=== PATIENT | male | born 1990 | race Native Hawaiian/Other Pacific Islander ===

== ENCOUNTER 2016-12-02 15:47 | Emergency (ER) | payer SELFPAY ==
[2016-12-02 15:48] VITALS: BP 150/88; PULSE 65; RESP 14; TEMP 98.6; O2SAT 99
--- NOTE | 2016-12-02 16:25 | PD ---
Physical Exam Time Seen by Provider: 16:23 Narrative 26-year-old male complaining of left upper back pain since yesterday. Denies new or recent injury. Worse with deep inspiration and movement. Denies cough, fevers, vomiting. Patient seen in triage. Vital signs reviewed. Patient awaiting bed placement. Data Data Last Documented VS Vital Signs Date Time Temp Pulse Resp B/P (MAP) Pulse Ox O2 Delivery O2 Flow Rate FiO2 12/02/16 15:48 98.6 65 14 150/88 (108) 99 MDM Supervised Visit with WALT: Nkechi Centeno Dec 02, 2016 16:25
--- NOTE | 2016-12-02 19:19 | PD ---
HPI Chief Complaint: Pain: Acute or Chronic Time Seen by Provider: 19:07 Travel History International Travel<30 days: No Contact w/Intl Traveler<30days: No Traveled to known affect area: No History of Present Illness HPI 26-year-old male presents emergency Department with complains of back pain. He states the pain is present now for the past 1-2 days. Pain is worse with taking a deep breath. Moderate in intensity. Some relief with limiting movements. He has not been sick recently. He states that he has recently started a new exercise routine. He did perform back exercises such as rows and pull downs. Patient denies any nausea vomiting. No abdominal pain. No urinary symptoms. PFSH Past Medical History Medical History: Denies Significant Hx Tetanus Vaccination: < 5 Years Past Surgical History Surgical History: No Previous Surgery Social History Alcohol Use: No Tobacco Use: No Substance Use: No Allergies-Medications (Allergen,Severity, Reaction): Coded Allergies: No Known Allergies (Unverified , 12/02/16) Reported Meds & Prescriptions Reported Meds & Active Scripts Active Flexeril (Cyclobenzaprine HCl) 10 Mg Tab 10 Mg PO TID Diclofenac Sodium DR (Diclofenac Sodium) 75 Mg Tabdr 75 Mg PO BID Review of Systems Except as stated in HPI: all other systems reviewed are Neg Physical Exam Narrative GENERAL: Well-developed, well-nourished in no acute distress. Nontoxic appearing. HEAD: Normocephalic, atraumatic. EYES: Pupils equal round and reactive. Extraocular motions intact. No scleral icterus. No injection or drainage. ENT: TMs clear without erythema. The external auditory canals clear. Nose: clear . Posterior pharynx is pink and moist. No tonsillar edema or exudate. Uvula midline. Airway patent. NECK: Trachea midline.Supple, nontender, moves head freely. No central bony tenderness or spasm. CARDIOVASCULAR: Regular rate and rhythm without murmurs, gallops, or rubs. RESPIRATORY: Clear to auscultation. Breath sounds equal bilaterally. No wheezes , rales, or rhonchi. GASTROINTESTINAL: Abdomen soft, non-tender, nondistended. No hepato-splenomegaly , or palpable masses. No guarding. EXTREMITIES: No clubbing, cyanosis, or edema. No joint tenderness, effusion, or edema noted. BACK: Patient has reproducible parascapular tenderness in the upper thoracic region. No spasm. Moves freely. No central bony tenderness. No pain in the lumbar spine. Data Data Last Documented VS Vital Signs Date Time Temp Pulse Resp B/P (MAP) Pulse Ox O2 Delivery O2 Flow Rate FiO2 12/02/16 15:48 98.6 65 14 150/88 (108) 99 Orders Orders Chest, Single Ap (12/02/16 19:11) Ed Discharge Order (12/02/16 19:46) MDM Medical Decision Making Medical Screen Exam Complete: Yes Emergency Medical Condition: Yes Medical Record Reviewed: Yes Interpretation(s) Chest x-ray: Negative Differential Diagnosis MDM: High Differential diagnoses: Fracture, sprain, strain, HNP, nerve or vascular injury , epidural abscess, pilonidal cyst Narrative Course Patient's given Flexeril 10 mg and Naprosyn 500 mg by mouth. Diagnosis Primary Impression: Back pain Qualified Codes: M54.6 - Pain in thoracic spine Patient Instructions: General Instructions Additional Instructions: Rest. Ice for the next 3 days followed by heat . Flexeril and Voltaren. Follow-up with a primary care doctor in one week. Return to the ER for emergencies. Scripts Cyclobenzaprine (Flexeril) 10 Mg Tab 10 MG PO TID for Muscle Spasm, #30 TAB 0 Refills Prov: Riley Pompa MD 12/02/[address] (Diclofenac Sodium DR) 75 Mg Tabdr 75 MG PO BID, #20 TAB 0 Refills Prov: Riley Pompa MD 12/02/16 Disposition: 01 DISCHARGE HOME Condition: Stable (she is referred) Yazan Corley Dec 02, 2016 19:19
--- NOTE | 2016-12-02 19:34 | RADRPT ---
EXAM DATE/TIME: 12/02/2016 19:06 [facility] COMPARISON: No previous studies available for comparison. INDICATIONS : Chest pain and back pain. MEDICAL HISTORY : None. SURGICAL HISTORY : None. ENCOUNTER: Initial ACUITY: 2 days PAIN SCORE: 4/10 LOCATION: Bilateral chest FINDINGS: A single view of the chest demonstrates the lungs to be symmetrically aerated without evidence of mas s, infiltrate or effusion. The cardiomediastinal contours are unremarkable. Osseous structures are intact. CONCLUSION: No acute disease. Raj Rae MD on December 02, 2016 at 19:33 Board Certified Radiologist. This report was verified electronically.
[2016-12-02] MEDS ORDERED: CYCL1TAB29 PO (19:47)
[2016-12-02] MEDS ORDERED: DICL75TA PO (19:47)
[2016-12-02] MEDS ORDERED: NAPROXEN 500 MG TAB PO ONE (20:00)
[2016-12-02] MEDS ORDERED: CYCLOBENZAPRINE HCL 10 MG TAB PO ONE (20:00)
[2016-12-02 20:08] VITALS: BP 131/65; TEMP 98.5
== END 2016-12-02 20:10 | disposition home or self-care (01) ==
LOC: NEPD 15:47
DX: M54.6 Pain in thoracic spine (principal)
CPT/HCPCS: 71010; 99284